=== PATIENT | female | born 2000 ===

== ENCOUNTER 2024-07-09 08:48 | Emergency (ER) | payer MEDICAID, OTHER ==
[2024-07-09 09:34] VITALS: BP 114/52; PULSE 78; RESP 18; TEMP 98.2; O2SAT 96
[2024-07-09 11:00] LABS: Basophils # (auto) 0 10 ^3/uL (0-0.2); Basophils % (auto) 0.4 % (0.0-2.0); Eosinophils # (auto) 0.1 10 ^3/uL (0-0.8); Mean Corpuscular Volume 73.6 fL (80.0-100.0); Monocytes # (auto) 0.9 10 ^3/uL (0-1.3); Nucleated Red Blood Cells % 0.1 %; Red Cell Distribution Width 16.6 % (11.8-14.3)
[2024-07-09 11:03] LABS: Eosinophils % (auto) 0.6 % (0.0-7.0); Hematocrit 34.2 % (36.0-46.0); Lymphocytes # (auto) 1.6 10 ^3/uL (0.4-5.4); Lymphocytes % (auto) 13.6 % (10.0-50.0); Mean Corpuscular Hemoglobin 23.6 pg (28.0-32.0); Mean Corpuscular Hgb Conc. 32.1 g/dL (32.0-36.0); Monocytes % (auto) 8.2 % (0.0-12.0); Neutrophils # (auto) 8.9 10 ^3/uL (1.6-8.6); Neutrophils % (auto) 77.2 % (37.0-80.0); Platelet Count (auto) 301 10^3/uL (140-450); Red Blood Cells 4.64 10^6/uL (4.0-5.20); White Blood Cell 11.5 10^3/uL (4.4-10.8)
[2024-07-09] MEDS: cefTRIAXone SOD 1,000 MG VL IM ONE (12:39)
[2024-07-09] MEDS: KETOROLAC TROMETH 30 MG/ML 1ML VIAL IM ONE (12:39)
[2024-07-09] MEDS ORDERED: IBUP-1455 PO (12:52)
[2024-07-09] MEDS ORDERED: METH4PAK PO (12:52)
[2024-07-09] MEDS ORDERED: CEPH500C PO (12:52)
== END 2024-07-09 13:01 | disposition home or self-care (01) ==
LOC: ER 08:48
DX: M77.9 Enthesopathy, unspecified (principal); Z79.899 Other long term (current) drug therapy
CPT/HCPCS: 36415; 73110; 85025; 96372; 99284; J0696; J1885

== ENCOUNTER → 2024-08-28 | Outpatient (CLI) | payer MEDICAID ==
[~2024-08-28] MED LIST: CEPH500C PO; IBUP-1455 PO; METH4PAK PO
[2024-08-29 08:58] LABS: Triglycerides 95 mg/dL (< 150)
[2024-08-29 08:59] LABS: LDL Cholesterol 86 mg/dL (< 100)
[2024-08-29 09:00] LABS: Cholesterol 149 mg/dL (< 200); HDL Cholesterol 47 mg/dL (40-59)
== END | disposition home or self-care (01) ==
LOC: LAB 08:22
PROVIDERS: ATTEND Internal Medicine
DX: N39.9 Disorder of urinary system, unspecified (principal); M17.11 Unilateral primary osteoarthritis, right knee; E03.8 Other specified hypothyroidism; Z00.00 Encounter for general adult medical examination without abnormal findings
CPT/HCPCS: 36415; 80061

== ENCOUNTER → 2024-09-22 | Outpatient (CLI) | payer MEDICAID ==
[2024-09-22 11:47] LABS: CRP High Sensitivity 1.03 mg/dL (<1.0)
[2024-09-22 11:50] LABS: Erythrocyte Sedimentation Rate 18 mm/hr (0-20)
[2024-09-22 15:32] LABS: Micro Albumin < 3.0 mg/L (<30.0)
[2024-09-23 08:06] LABS: Complement C3 143 mg/dL (82-167); Rheumatoid Arthritis Factor <10.0 IU/mL (<14.0)
[2024-09-23 17:06] LABS: RNP Antibody 0.2 AI (0.0-0.9); Sjogren's Anti-SS-A Antibody <0.2 AI (0.0-0.9); Sjogren's Anti-SS-B Antibody <0.2 AI (0.0-0.9); Smith Antibody <0.2 AI (0.0-0.9)
[2024-09-23 20:06] LABS: Anti-Nuclear Antibody Direct Negative (Negative)
== END | disposition home or self-care (01) ==
LOC: LAB 09:42
PROVIDERS: ATTEND Internal Medicine Rheumatology
DX: R76.8 Other specified abnormal immunological findings in serum (principal); M25.50 Pain in unspecified joint
CPT/HCPCS: 36415; 82043; 82570; 84450; 84460; 85652; 86038; 86141; 86160; 86200; 86235; 86431; 86812